=== PATIENT | female | born 1980 | race Caucasian/White ===

== ENCOUNTER 2024-03-02 20:49 | Emergency (ER) | payer SELFPAY ==
[~2024-03-02] VITALS: Ht 165.1 cm; Wt 127.0 kg
[2024-03-02 22:49] LABS: INFLUENZAE A&B ANTIGEN (RAPID) NEGATIVE (NEGATIVE); RESPIRATORY SYNC. VIRUS NEGATIVE (NEGATIVE)
[2024-03-02] MEDS: DOXYCYCLINE HYCLATE TABLET 100 MG TAB PO ONE (22:59)
[2024-03-02] MEDS ORDERED: DOXYCYCLINE HY100 MG PO (23:02)
[2024-03-02 23:04] VITALS: PULSE 78; RESP 20; TEMP 98; O2SAT 100
== END 2024-03-02 23:05 | disposition home or self-care (01) ==
LOC: ER 20:53
DX: R05.9 Cough, unspecified (principal); J18.9 Pneumonia, unspecified organism; I10 Essential (primary) hypertension; Z11.52 Encounter for screening for COVID-19
CPT/HCPCS: 71046; 87400; 87420; 99283; U0002